=== PATIENT | male | born 1965 | race Caucasian/White ===

== ENCOUNTER 2018-08-11 07:57 | Day surgery (SDC) | payer BC ==
[2018-08-11] VITALS (8 sets, daily range): BP systolic 113–144; BP diastolic 69–100
[~2018-08-11] VITALS: Ht 185.4 cm; Wt 136.8 kg
[~2018-08-11 07:57] MED LIST: AMLO1CAP PO; ASPI-1053 PO; FLO0.4C PO; METF500T7 PO; METO25TA6 PO; PROB500T34 PO; TRIA1TAB3 PO
[2018-08-11] MEDS ORDERED: sod bicarbonate 150mEq in D5W 1,150 ML IV ONE (08:35)
[2018-08-11] MEDS ORDERED: diphenhydrAMINE 25mg capsule PO PRN (08:35)
[2018-08-11 09:02] LABS: BASOPHILS % (AUTO) 0.7 % (0-1); EOSINOPHILS # (AUTO) 0.1 X10'3 (0-0.9); EOSINOPHILS % (AUTO) 2.2 % (0-6); HEMATOCRIT 50.1 % (42.0-52.0); HEMOGLOBIN 16.5 g/dl (14.0-17.9); LYMPHOCYTES % (AUTO) 19.2 % (21-51); MEAN CORPUSCULAR HEMOGLOBIN 28.6 PG (27.0-31.0); MEAN CORPUSCULAR HGB CONC 32.9 g/dL (33.0-36.5); MEAN CORPUSCULAR VOLUME 86.8 FL (78-98); MEAN PLATELET VOLUME 7.2 FL (7.4-10.4); MONOCYTES # (AUTO) 0.4 X10'3 (0-0.9); MONOCYTES % (AUTO) 7.1 % (2-12); NEUTROPHILS # (AUTO) 3.7 X10'3 (1.8-7.7); NEUTROPHILS % (AUTO) 70.8 % (42-75); PLATELET COUNT 271 X10'3 (140-440); RED BLOOD COUNT 5.77 X10'6 (4.70-6.10); RED CELL DISTRIBUTION WIDTH 12.6 % (11.5-14.5); WHITE BLOOD COUNT 5.2 X10'3 (4.5-11.0)
[2018-08-11 09:11] LABS: ALBUMIN 3.6 G/DL (3.4-5.0); ANION GAP 9 (8-16); BLOOD UREA NITROGEN 13 MG/DL (7-18); BUN/CREATININE RATIO 15.1 (5.4-32.0); CALCIUM 8.8 MG/DL (8.5-10.1); CHLORIDE 102 MMOL/L (99-107); CREATININE 0.86 MG/DL (0.60-1.10); GLUCOSE 164 MG/DL (70-104); POTASSIUM 3.5 MMOL/L (3.5-5.1); SODIUM 138 MMOL/L (135-145); TOTAL CARBON DIOXIDE 27.1 MMOL/L (24-32); eGFR > 90 ML/MIN
[2018-08-11] MEDS ORDERED: TRIA1CAP2 PO (09:17)
[2018-08-11 09:20] LABS: PROTHROMBIN TIME 10.2 SECONDS (9.0-12.0)
[2018-08-11] MEDS ORDERED: iohexol 350MG/ML 100ml bottle IV ONE ×2 (09:46→10:27)
[2018-08-11] MEDS ORDERED: LIDOcaine 1% (10mg/ml)w/preservative injection 20ml MDV ONE ×2 (09:46→10:26)
[2018-08-11] MEDS ORDERED: iohexol 350 MG/ML 50ML vial IV ONE ×3 (09:46→12:03)
[2018-08-11] MEDS ORDERED: midazolam 2 mg/2 ml injection ONE ×2 (10:26→11:37)
[2018-08-11] MEDS ORDERED: fentaNYL/PF 50MCG/1 ML 2ML syringe ONE (10:26)
[2018-08-11] MEDS ORDERED: heparin 1,000unit/ml 10ml vial 10 ML ONE (10:35)
[2018-08-11] MEDS ORDERED: verapamil 2.5 mg/ml inj IV ONE (10:35)
[2018-08-11] MEDS ORDERED: nitroGLYCERIN-Tridil 50MG/D5W 250 ML IV ONE (10:35)
== END 2018-08-11 14:05 | disposition home or self-care (01) ==
LOC: SSTAY O 07:57
PROVIDERS: ATTEND Internal Medicine Cardiovascular Disease
DX: R94.39 Abnormal result of other cardiovascular function study (principal); I47.2 Ventricular tachycardia; E11.9 Type 2 diabetes mellitus without complications; I10 Essential (primary) hypertension; G47.30 Sleep apnea, unspecified; Z79.899 Other long term (current) drug therapy; Z82.49 Family history of ischemic heart disease and other diseases of the circulatory system; Z86.73 Personal history of transient ischemic attack (TIA), and cerebral infarction without residual deficits; Z95.1 Presence of aortocoronary bypass graft; Z88.0 Allergy status to penicillin; Z88.2 Allergy status to sulfonamides; Z79.82 Long term (current) use of aspirin; Z98.890 Other specified postprocedural states
CPT/HCPCS: 36415; 80048; 82948; 83735; 85025; 85610; 93005; 93458; 99152; 99153; A6257; J1644; J2001; J2250; J3010; Q0163; Q9967; A4620; C1769; C1894; J3490